=== PATIENT | female | born 1990 | race American Indian/Alaskan Native ===

== ENCOUNTER 2017-03-29 04:21 | Emergency (ER) | payer MEDICAID ==
[2017-03-29 05:42] LABS: Basophils % (Auto) 0.4 % (0.0-1.8); Eosinophils # (Auto) 0.1 K/mm3 (0.0-0.4); Eosinophils % (Auto) 0.5 % (0.0-4.3); Hematocrit 36.9 % (30.3-42.9); Hemoglobin 11.5 gm/dl (10.1-14.3); Lymphocytes # (Auto) 1.9 K/mm3 (1.2-5.4); Lymphocytes % (Auto) 15.7 % (13.4-35.0); Mean Corpuscular HGB Conc 31 % (30-34); Monocytes # (Auto) 0.5 K/mm3 (0.0-0.8); Monocytes % (Auto) 4.4 % (0.0-7.3); Platelet Count 212 K/mm3 (140-440); Red Cell Distribution Width 16.4 % (13.2-15.2)
[2017-03-29 05:53] LABS: Alanine Aminotransferase 12 units/L (7-56); Albumin 3.8 g/dL (3.9-5); BUN/Creatinine Ratio 11; Blood Urea Nitrogen 10 mg/dL (7-17); Calcium 8.5 mg/dL (8.4-10.2); Hemolysis Index 3
[2017-03-29 05:55] LABS: Mean Corpuscular Hemoglobin 22 pg (28-32); Mean Corpuscular Volume 70 fl (79-97)
[2017-03-29 06:23] LABS: Bilirubin,Urine NEG (Negative); Blood,Urine MOD (Negative); Calcium Oxalate Crystals,Urine 3+; Color,Urine Yellow (Yellow); Mucus,Urine 3+ /HPF; Nitrite,Urine NEG (Negative); Protein,Urine <15 mg/dL mg/dL (Negative)
[2017-03-29] MEDS ORDERED: ZOFRAN IV ONE (07:38)
[2017-03-29] MEDS ORDERED: NACL 0.9% 1000 ML 1,000 ML IV ONE (07:38)
[2017-03-29] MEDS ORDERED: MORPHINE IV ONE (07:38)
[2017-03-29] MEDS ORDERED: NACL 0.9% 1000 ML 1,000 ML ONE (07:39)
[2017-03-29] MEDS ORDERED: MORPHINE ONE (07:39)
[2017-03-29] MEDS ORDERED: ZOFRAN ONE (07:39)
--- NOTE | 2017-03-29 07:43 | Emergency Department Report ---
ED Abdominal Pain HPI - General Chief Complaint: Abdominal Pain Stated Complaint: ABD PAIN Time Seen by Provider: 03/29/17 07:32 Source: patient Mode of arrival: Ambulatory Limitations: No Limitations - History of Present Illness Initial Comments: Patient is 26-year-old female with no significant past medical history presented to the ER with sudden onset of suprapubic pain and right flank pain, described as crampy in nature. Patient stated that she has one episode of diarrhea. She denied any fever, no vomiting. She feels nauseated. MD Complaint: abdominal pain, flank pain -: Sudden Location: suprapubic, R flank Quality: cramping Associated Symptoms: nausea, diarrhea. denies: vomiting - Related Data Home Medications Medication Instructions Recorded Confirmed Last Taken Vit No.126/Iron/Folic 1 tab PO DAILY 11/05/13 11/05/13 11/05/13 08:00 [Classic Tablet] Previous Rx's Medication Instructions Recorded Last Taken Type Docusate Sodium [Colace] 100 mg PO BID PRN #60 capsule 11/08/13 Unknown Rx Ferrous Sulfate [Feosol 325 MG tab] 325 mg PO BID #60 tablet 11/08/13 Unknown Rx Ibuprofen [Motrin] 800 mg PO Q8H PRN #60 tablet 11/08/13 Unknown Rx oxyCODONE /ACETAMINOPHEN [Percocet 1 tab PO Q6HR PRN #45 tablet 11/08/13 Unknown Rx 5/325] Allergies Allergy/AdvReac Type Severity Reaction Status Date / Time No Known Allergies Allergy Verified 11/05/13 21:34 ED Review of Systems ROS: Stated complaint: ABD PAIN Other details as noted in HPI Comment: All other systems reviewed and negative Constitutional: denies: chills, fever Respiratory: denies: cough, shortness of breath Cardiovascular: denies: chest pain, palpitations Gastrointestinal: abdominal pain, nausea, diarrhea. denies: vomiting, constipation, hematemesis, melena, hematochezia Genitourinary: hematuria. denies: urgency, dysuria Neurological: denies: headache, weakness, numbness, paresthesias ED Past Medical Hx - Past Medical History Previous Medical History?: Yes Hx Hypertension: No Hx Diabetes: No Hx Seizures: No Hx Asthma: Yes (use albuterol 3-4 x/week during preg) Hx COPD: No Hx HIV: No - Surgical History Past Surgical History?: Yes Additional Surgical History: c sectx1 - Social History Smoking Status: Current Every Day Smoker Substance Use Type: None - Medications Home Medications: Home Medications Medication Instructions Recorded Confirmed Last Taken Type Vit No.126/Iron/Folic 1 tab PO DAILY 11/05/13 11/05/13 11/05/13 08:00 History [Classic Tablet] Docusate Sodium [Colace] 100 mg PO BID PRN #60 capsule 11/08/13 Unknown Rx Ferrous Sulfate [Feosol 325 MG tab] 325 mg PO BID #60 tablet 11/08/13 Unknown Rx Ibuprofen [Motrin] 800 mg PO Q8H PRN #60 tablet 11/08/13 Unknown Rx oxyCODONE /ACETAMINOPHEN [Percocet 1 tab PO Q6HR PRN #45 tablet 11/08/13 Unknown Rx 5/325] ED Physical Exam - General Limitations: No Limitations General appearance: alert, in distress (secondary to pain) - Head Head exam: Present: atraumatic, normocephalic, normal inspection - Eye Eye exam: Present: normal appearance, PERRL - ENT ENT exam: Present: normal exam, normal orophraynx, mucous membranes moist - Neck Neck exam: Present: normal inspection, full ROM. Absent: tenderness, meningismus, lymphadenopathy - Respiratory Respiratory exam: Present: normal lung sounds bilaterally. Absent: respiratory distress, wheezes, rales, rhonchi, chest wall tenderness, accessory muscle use, decreased breath sounds, prolonged expiratory - Cardiovascular Cardiovascular Exam: Present: regular rate, normal rhythm, normal heart sounds - GI/Abdominal GI/Abdominal exam: Present: soft, tenderness (suprapubic), normal bowel sounds. Absent: distended, guarding, rebound, rigid, organomegaly, mass, bruit, pulsatile mass - Extremities Exam Extremities exam: Present: normal inspection, full ROM, normal capillary refill - Back Exam Back exam: Present: normal inspection, full ROM. Absent: CVA tenderness (L) - Neurological Exam Neurological exam: Present: alert, oriented X3, CN II-XII intact, normal gait - Skin Skin exam: Present: warm, intact, normal color ED Course Vital Signs 03/29/17 03/29/17 03/29/17 04:30 06:18 06:30 Temperature 98.1 F Pulse Rate 63 63 55 L Respiratory 18 17 16 Rate Blood Pressure 114/61 112/68 O2 Sat by Pulse 99 99 Oximetry 03/29/17 06:34 Temperature 98 F Pulse Rate Respiratory Rate Blood Pressure O2 Sat by Pulse Oximetry - Reevaluation(s) Reevaluation #1: 03/29/17 09:13 Patient stated that she is feeling much better, heart pain is down from 7 out of 10 to 4 out of 10. No more nausea or vomiting. ED Medical Decision Making - Lab Data Result diagrams: 03/29/17 05:14 03/29/17 05:14 Critical care attestation.: If time is entered above; I have spent that time in minutes in the direct care of this critically ill patient, excluding procedure time. ED Disposition Clinical Impression: Right ureteral stone, Right flank pain Disposition: DC-01 TO HOME OR SELFCARE Is pt being admited?: No Condition: Stable Instructions: Abdominal Pain (ED), Renal Colic (ED) Referrals: AVEL ACEVEDO MD [Primary Care Provider] - 3-5 Days
--- NOTE | 2017-03-29 09:01 | Cat Scan Report ---
FINAL REPORT PROCEDURE: CT ABDOMEN PELVIS WO CON TECHNIQUE: Computerized axial tomography of the abdomen and pelvis was performed without intravenous contrast. This study is performed without intravascular contrast material and its sensitivity for abdominal and pelvic pathology, including neoplasms, inflammation, abscess, free fluid, thrombosis, arterial dissection and infarction, is reduced compared with a contrast enhanced study. Oral contrast was not administered limiting evaluation of the bowel as well. HISTORY: ABDOMINAL PAIN, right flank pain COMPARISON: No prior studies are available for comparison. FINDINGS: Visualized lower thorax: No significant abnormality. Liver: Normal size and attenuation. Spleen: Normal size and attenuation. Gallbladder and biliary system: Normal. Pancreas: Normal. Adrenals: Normal. Kidneys: Normal left kidney. Mild right hydronephrosis and hydroureter. 1.8 millimeter distal right intraureteral calculus.. GI tract: Unremarkable. Normal appendix. Lymph nodes and mesentery: Normal. Vasculature: Normal. Bladder: Normal. Reproductive organs: Normal. Peritoneum: Small dependent free fluid in the pelvis within physiologic limits. Musculoskeletal structures: No significant abnormality. Other: None. IMPRESSION: Mild right hydronephrosis and hydroureter. 1.8 millimeter distal right intraureteral calculus. Small dependent free fluid in the pelvis within physiologic limits.
[2017-03-29] MEDS ORDERED: TORADOL IV ONE (09:12)
[2017-03-29 09:38] VITALS: BP 123/77
== END 2017-03-29 10:15 | disposition home or self-care (01) ==
LOC: ED 04:21
DX: N20.1 Calculus of ureter (principal); J45.909 Unspecified asthma, uncomplicated; F17.200 Nicotine dependence, unspecified, uncomplicated
CPT/HCPCS: 36415; 74176; 80053; 81001; 84703; 85025; 96361; 96374; 96375; 99284; J1885; J2270; J2405; J7030

== ENCOUNTER 2019-01-07 05:00 | Emergency (ER) | payer MEDICAID ==
[2019-01-07 05:25] VITALS: BP 132/82
[2019-01-07] MEDS ORDERED: SODIUM CHLORIDE 0.9% 1000 ML 1,000 ML IV ONE (06:09)
[2019-01-07] MEDS ORDERED: ONDANSETRON 4 MG/2 ML INJ IV ONE (06:09)
[2019-01-07] MEDS ORDERED: KETOROLAC 30 MG/1 ML INJ IV ONE (06:09)
[2019-01-07 06:51] LABS: Basophils # (Auto) 0.1 K/mm3 (0.0-0.1); Basophils % (Auto) 0.7 % (0.0-1.8); Eosinophils # (Auto) 0.2 K/mm3 (0.0-0.4); Eosinophils % (Auto) 2.6 % (0.0-4.3); Hematocrit 35.9 % (30.3-42.9); Hemoglobin 11.3 gm/dl (10.1-14.3); Lymphocytes # (Auto) 3.4 K/mm3 (1.2-5.4); Lymphocytes % (Auto) 37.1 % (13.4-35.0); Mean Corpuscular HGB Conc 31 % (30-34); Mean Corpuscular Volume 70 fl (79-97); Monocytes # (Auto) 0.5 K/mm3 (0.0-0.8); Monocytes % (Auto) 5.6 % (0.0-7.3); Platelet Count 294 K/mm3 (140-440); Red Blood Count 5.15 M/mm3 (3.65-5.03); Red Cell Distribution Width 17.3 % (13.2-15.2)
[2019-01-07 07:01] LABS: Alanine Aminotransferase 15 units/L (7-56); Albumin 3.9 g/dL (3.9-5); BUN/Creatinine Ratio 9; Blood Urea Nitrogen 9 mg/dL (7-17); Calcium 8.9 mg/dL (8.4-10.2); Hemolysis Index 5
[2019-01-07] MEDS ORDERED: MORPHINE 4 MG/1 ML INJ IV ONE (07:10)
--- NOTE | 2019-01-07 08:18 | Emergency Department Report ---
ED Abdominal Pain HPI - General Chief Complaint: Abdominal Pain Stated Complaint: BACK PAIN Time Seen by Provider: 01/07/19 07:08 Source: patient Mode of arrival: Stretcher Limitations: No Limitations - History of Present Illness Initial Comments: This is a 28-year-old female nontoxic, well nourished in appearance, no acute signs of distress presents to the ED with c/o of nausea and right flank pain x1 day. Patient denies any vomiting. Stated has history of kidney stones and symptoms are similar. Patient describes flank pain as cramping and aching with level of 3/10. Deneis any radiation of pain. Patient denies chest pain, short of breath, fever, chills, headache, stiff neck, numbness or tingling. Patient denies any diarrhea or constipation. Patient denies any recent travels. Denies any urinary symptoms. Patient denies any drug allergies. MD Complaint: flank pain -: days(s) Location: R flank Radiation: none Migration to: no migration Severity: mild Severity scale (0 -10): 8 Quality: cramping Consistency: constant Improves With: nothing Worsens With: nothing Associated Symptoms: nausea. denies: vomiting, diarrhea, fever, chills, constipation, dysuria, hematemesis, hematochezia, melena, hematuria, anorexia, syncope - Related Data Home Medications Medication Instructions Recorded Confirmed Last Taken Vit No.126/Iron/Folic 1 tab PO DAILY 11/05/13 11/05/13 11/05/13 08:00 [Classic Tablet] Previous Rx's Medication Instructions Recorded Last Taken Type Docusate Sodium [Colace] 100 mg PO BID PRN #60 capsule 11/08/13 Unknown Rx Ferrous Sulfate [Feosol 325 MG tab] 325 mg PO BID #60 tablet 11/08/13 Unknown Rx Ibuprofen [Motrin] 800 mg PO Q8H PRN #60 tablet 11/08/13 Unknown Rx oxyCODONE /ACETAMINOPHEN [Percocet 1 tab PO Q6HR PRN #45 tablet 11/08/13 Unknown Rx 5/325] Ondansetron [Zofran Odt] 4 mg PO Q8HR PRN #14 tab.rapdis 03/29/17 Unknown Rx Tamsulosin [Flomax] 0.4 mg PO QDAY #14 cap 03/29/17 Unknown Rx oxyCODONE /ACETAMINOPHEN [Percocet 1 tab PO Q6HR PRN #10 tablet 03/29/17 Unknown Rx 5/325] Ketorolac [Toradol] 10 mg PO Q6H PRN #15 tablet 01/07/19 Unknown Rx Ondansetron [Zofran Odt] 4 mg PO Q8HR PRN #15 tab.rapdis 01/07/19 Unknown Rx Allergies Allergy/AdvReac Type Severity Reaction Status Date / Time No Known Allergies Allergy Verified 11/05/13 21:34 ED Review of Systems ROS: Stated complaint: BACK PAIN Other details as noted in HPI Constitutional: denies: chills, fever Eyes: denies: eye pain, eye discharge, vision change ENT: denies: ear pain, throat pain Respiratory: denies: cough, shortness of breath, wheezing Cardiovascular: denies: chest pain, palpitations Endocrine: no symptoms reported Gastrointestinal: nausea, other (righ flank pain). denies: abdominal pain, diarrhea Genitourinary: denies: urgency, dysuria, discharge Musculoskeletal: denies: back pain, joint swelling, arthralgia Skin: denies: rash, lesions Neurological: denies: headache, weakness, paresthesias Psychiatric: denies: anxiety, depression Hematological/Lymphatic: denies: easy bleeding, easy bruising ED Past Medical Hx - Past Medical History Previous Medical History?: Yes Hx Hypertension: No Hx Diabetes: No Hx Seizures: No Hx Kidney Stones: Yes Hx Asthma: Yes (use albuterol 3-4 x/week during preg) Hx COPD: No Hx HIV: No - Surgical History Past Surgical History?: Yes Additional Surgical History: c sectx1 - Social History Smoking Status: Current Every Day Smoker Substance Use Type: None - Medications Home Medications: Home Medications Medication Instructions Recorded Confirmed Last Taken Type Vit No.126/Iron/Folic 1 tab PO DAILY 11/05/13 11/05/13 11/05/13 08:00 History [Classic Tablet] Docusate Sodium [Colace] 100 mg PO BID PRN #60 capsule 11/08/13 Unknown Rx Ferrous Sulfate [Feosol 325 MG tab] 325 mg PO BID #60 tablet 11/08/13 Unknown Rx Ibuprofen [Motrin] 800 mg PO Q8H PRN #60 tablet 11/08/13 Unknown Rx oxyCODONE /ACETAMINOPHEN [Percocet 1 tab PO Q6HR PRN #45 tablet 11/08/13 Unknown Rx 5/325] Ondansetron [Zofran Odt] 4 mg PO Q8HR PRN #14 tab.rapdis 03/29/17 Unknown Rx Tamsulosin [Flomax] 0.4 mg PO QDAY #14 cap 03/29/17 Unknown Rx oxyCODONE /ACETAMINOPHEN [Percocet 1 tab PO Q6HR PRN #10 tablet 03/29/17 Unknown Rx 5/325] Ketorolac [Toradol] 10 mg PO Q6H PRN #15 tablet 01/07/19 Unknown Rx Ondansetron [Zofran Odt] 4 mg PO Q8HR PRN #15 tab.rapdis 01/07/19 Unknown Rx ED Physical Exam - General Limitations: No Limitations General appearance: alert, in no apparent distress - Head Head exam: Present: atraumatic, normocephalic - Neck Neck exam: Present: normal inspection, full ROM. Absent: tenderness, meningismus, lymphadenopathy - Respiratory Respiratory exam: Present: normal lung sounds bilaterally. Absent: respiratory distress, wheezes, rales, rhonchi, stridor, chest wall tenderness, accessory muscle use, decreased breath sounds, prolonged expiratory - Cardiovascular Cardiovascular Exam: Present: regular rate, normal rhythm, normal heart sounds. Absent: bradycardia, tachycardia, irregular rhythm, systolic murmur, diastolic murmur, rubs, gallop - GI/Abdominal GI/Abdominal exam: Present: soft, normal bowel sounds. Absent: distended, tenderness, guarding, rebound, rigid, diminished bowel sounds - Extremities Exam Extremities exam: Present: normal inspection, full ROM - Back Exam Back exam: Present: normal inspection, full ROM. Absent: tenderness, CVA tenderness (R), CVA tenderness (L), muscle spasm, paraspinal tenderness, vertebral tenderness, rash noted - Neurological Exam Neurological exam: Present: alert, oriented X3, normal gait - Psychiatric Psychiatric exam: Present: normal affect, normal mood - Skin Skin exam: Present: warm, dry, intact, normal color. Absent: rash ED Course Vital Signs 01/07/19 01/07/19 05:15 06:39 Temperature 98.3 F Pulse Rate 62 Respiratory 18 20 Rate Blood Pressure 132/82 O2 Sat by Pulse 98 Oximetry - Reevaluation(s) Reevaluation #1: 01/07/19 08:19 Patient is speaking in full sentences with no signs of distress noted. ED Medical Decision Making - Lab Data Result diagrams: 01/07/19 05:38 01/07/19 05:38 - Medical Decision Making This is a 28-year-old female that presents with right kidney stone. Patient is stable and was examined by me. There is no abdominal tenderness. Negative signs of symptoms of appendicitis. Labs obtained. UA obtained. CT of abdomen obtained and dictated by the radiologist. Patient is notified of the report with no q uestions noted by the patient. Vital signs are stable prior to discharge. Patient received medical treatment in the ED which patient stated symptoms has resovled and subsided. Was instructed note to operate any machinery due to possible drowsiness and stated someone will drive the patient home. A by mouth challenge has been obtained and patient tolerated well with no nausea vomiting. Patient was also instructed to Follow-up with a urologist doctor in 3-5 days or if symptoms worsen and continue return to emergency room as soon as possible. At time of discharge, the patient does not seem toxic or ill in appearance. No acute signs of distress noted. Patient agrees to discharge treatment plan of care. No further questions noted by the patient. Critical care attestation.: If time is entered above; I have spent that time in minutes in the direct care of this critically ill patient, excluding procedure time. ED Disposition Clinical Impression: Right kidney stone Disposition: DC-01 TO HOME OR SELFCARE Is pt being admited?: No Does the pt Need Aspirin: No Condition: Stable Instructions: Kidney Stones (ED), Ketorolac (By mouth) Additional Instructions: Follow-up with a urologist doctor in 3-5 days or if symptoms worsen and continue return to emergency room as soon as possible. Prescriptions: Ketorolac [Toradol] 10 mg PO Q6H PRN #15 tablet PRN Reason: Pain Ondansetron [Zofran Odt] 4 mg PO Q8HR PRN #15 tab.rapdis PRN Reason: Nausea Referrals: PRIMARY CARE, [Primary Care Provider] - 3-5 Days PUSHPA PACHECO MD [Staff Physician] - 3-5 Days ROSALIA SHULTZ MD [Staff Physician] - 3-5 Days [facility] [Outside] - 3-5 Days Forms: Work/School Release Form(ED)
[2019-01-07 09:00] LABS: HCG Qualitative,Urine Negative (Negative)
[2019-01-07 09:19] LABS: Bilirubin,Urine Negative (Negative); Blood,Urine Trace (Negative); Color,Urine Yellow (Yellow); Urobilinogen,Urine < 0.2 mg/dL (<2.0)
[2019-01-07 09:32] LABS: Mucus,Urine FEW /HPF
[2019-01-07 09:34] LABS: Bacteria,Urine 1+ /HPF (Negative)
--- NOTE | 2019-01-07 10:51 | Cat Scan Report ---
CT abdomen pelvis wo con INDICATION: right flank pain. TECHNIQUE: All CT scans at this location are performed using the following dose modulation technique: Automated exposure control. Helical slices were obtained through the abdomen and pelvis. No contrast is adminis tered. COMPARISON: CT scan dated 03/29/2017 FINDINGS: Abdomen: Liver, spleen, pancreas, adrenal glands, and left kidney are unremarkable. There is mild dil atation of the right renal collecting system. There is a 4 mm stone in the proximal right ureter. Th e aorta is normal in diameter. There is no adenopathy. The appendix is unremarkable. Pelvis: Bowel contained within the pelvis is unremarkable. There is no inflammatory change. Phlebolit hs are noted in the left pelvis. On review of bone windows, no acute osseous abnormalities are seen. IMPRESSION: 1. There is a 4 mm stone in the proximal right ureter with mild dilatation of the right renal collect ing system. Signer Name: Dominic Chaudhry MD Signed: 01/07/2019 10:47 AM Workstation Name: [id number]
== END 2019-01-07 11:07 | disposition home or self-care (01) ==
LOC: ED 05:00
DX: N20.0 Calculus of kidney (principal); J45.909 Unspecified asthma, uncomplicated; F17.200 Nicotine dependence, unspecified, uncomplicated; Z98.890 Other specified postprocedural states; Z79.899 Other long term (current) drug therapy; Z79.1 Long term (current) use of non-steroidal anti-inflammatories (NSAID)
CPT/HCPCS: 36415; 74176; 80053; 81001; 81025; 83690; 85025; 96374; 96375; 99284; J1885; J2270; J2405; J7030

== ENCOUNTER 2019-03-15 12:45 | Emergency (ER) | payer OTHER, MEDICAID ==
[2019-03-15 14:10] VITALS: BP 136/87
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
== END 2019-03-15 15:32 | disposition home or self-care (01) ==
LOC: ED 12:45
DX: M54.2 Cervicalgia (principal); M54.9 Dorsalgia, unspecified; M79.602 Pain in left arm; R51 Headache; V43.52XA Car driver injured in collision with other type car in traffic accident, initial encounter; Y93.89 Activity, other specified; Y92.410 Unspecified street and highway as the place of occurrence of the external cause; Y99.8 Other external cause status

== ENCOUNTER 2021-02-01 17:45 | Emergency (ER) | payer MEDICAID | END 2021-02-02 05:23 | disposition left against medical advice (07) | LOC: ED 17:45 | DX: Z00.00 Encounter for general adult medical examination without abnormal findings (principal); Z53.21 Procedure and treatment not carried out due to patient leaving prior to being seen by health care provider ==

== ENCOUNTER 2021-06-11 11:54 | Emergency (ER) | payer MEDICAID ==
[2021-06-11] MEDS ORDERED: CYCLOBENZAPRINE 10 MG TAB PO ONE (16:09)
[2021-06-11] MEDS ORDERED: KETOROLAC 10 MG TAB PO ONE (16:09)
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
[2021-06-11 16:20] VITALS: BP 121/87
== END 2021-06-11 16:30 | disposition home or self-care (01) ==
LOC: ED 11:54
DX: M54.2 Cervicalgia (principal); M54.50 Low back pain, unspecified; V89.2XXA Person injured in unspecified motor-vehicle accident, traffic, initial encounter; Y93.89 Activity, other specified; Y92.89 Other specified places as the place of occurrence of the external cause; Y99.8 Other external cause status
CPT/HCPCS: 99282